=== PATIENT | male | born 1940 | race Caucasian/White ===

== ENCOUNTER 2022-10-04 04:44 | Emergency (ER) | payer OTHER, SELFPAY ==
[2022-10-04 04:47] VITALS: BP 143/98; PULSE 93; RESP 16; TEMP 37; O2SAT 100
[2022-10-04] MEDS: Tranexamic Acid 1,000 MG/10 ML VIAL 1000 MG IVP (05:20)
--- NOTE | 2022-10-04 05:36 | ED.GENADUL_ITS ---
Discharge Plan Disposition Patient Disposition: Home Condition: Improving Discharge Details Chief Complaint: DentalOral Clinical Impression: Surgical wound hemorrhage after dental procedure Primary Care Provider: Unknown,Unknown ED Provider: Davon Sutton Home Meds and New Rx's Prescriptions: No Action rivaroxaban 20 mg Tablet 20 mg PO AC memantine 5 mg Tablet 5 mg PO DAILY aspirin 81 mg Tablet,Chewable 81 mg PO DAILY Discharge Instructions Additional Instructions: Please follow-up with your primary care physician and dentist as needed. Please return to the emergency department for any worsening symptoms. Medical Decision Making 82-year-old male on rivaroxaban recent upper molar tooth extraction presents with resolving bleeding from tooth extraction site; gauze in place no active bleeding, have applied TXA impregnated gauze to site. Hemodynamically stable no acute distress. Will reassess for recurrent bleeding. Likely discharge home with close followup 6: 30 patient resting comfortably no further bleeding. Hemodynamically stable HPI General Date/Time Provider Initiated Documentation: 10/04/22 04:57 . HPI Narrative: 82-year-old male on rivaroxaban recent tooth extraction presents with bleeding from tooth extraction site after brushing his teeth last evening. Related Data Home Medications Medication Instructions Recorded Confirmed aspirin 81 mg chewable tablet 81 mg PO DAILY 10/04/22 10/04/22 memantine 5 mg tablet 5 mg PO DAILY 10/04/22 10/04/22 rivaroxaban 20 mg tablet 20 mg PO AC 10/04/22 10/04/22 Allergies Allergy/AdvReac Type Severity Reaction Status Date / Time No Known Allergies Allergy Unverified 10/04/22 04:53 General Stated Complaint: DentalOral SIERRA: 4 Review of Systems Narrative: Review of Systems Constitutional: negative Eyes: negative ENT: bleeding from tooth extraction site Cardiovascular: negative Respiratory: negative Gastrointestinal: negative : negative Musculoskeletal: negative Skin: negative Neurologic: negative Psych: negative PFSH All Active Problems (Updated 10/04/22 @ 06:27 by Davon Sutton MD) Surgical wound hemorrhage after dental procedure (Acute) Social History Smoking/Tobacco Use Status: Never Smoking risk assessment performed?: Yes Alcohol Intake: never Substance use type: does not use Do you feel safe at home: Yes Do you feel safe in your relationship?: Yes Exam Narrative Exam Narrative: Physical Examination General: alert, awake, cooperative, resting comfortably, no acute distress HEENT: left upper molar tooth extraction site with gauze in place, no active bleeding Course Vital Signs Vital signs: Vital Signs Temperature 37.0 C 10/04/22 04:47 Pulse 93 H 10/04/22 04:47 Respiratory Rate 16 10/04/22 04:47 Blood Pressure 143/98 H 10/04/22 04:47 Pulse Oximetry 100 10/04/22 04:47 Temperature 37.0 C 10/04/22 04:47 Pulse 93 H 10/04/22 04:47 Respiratory Rate 16 10/04/22 04:47 Respiratory Effort Normal 10/04/22 04:51 Blood Pressure 143/98 H 10/04/22 04:47 Pulse Oximetry 100 10/04/22 04:47 Oxygen Delivery Method Room Air 10/04/22 04:47 Oxygen Flow Rate 0 10/04/22 04:47 Pain Level 0 10/04/22 04:47
[2022-10-04 06:29] VITALS: BP 142/72; PULSE 72; RESP 16; O2SAT 99
== END 2022-10-04 06:31 | disposition home or self-care (01) ==
PROVIDERS: Emergency Provider Emergency Medicine
DX: K08.89 Other specified disorders of teeth and supporting structures (principal)
CPT/HCPCS: 96374; 99284

== ENCOUNTER 2022-10-09 08:36 | Emergency (ER) | payer OTHER, SELFPAY ==
[2022-10-09] VITALS (17 sets, daily range): BP systolic 126–133; BP diastolic 72–84; PULSE 65–92; RESP 18; TEMP 36.7; O2SAT 98–100
--- NOTE | 2022-10-09 09:11 | ED.GENADUL_ITS ---
Discharge Plan Disposition Patient Disposition: Home Discharge Details Clinical Impression: Surgical wound hemorrhage after dental procedure Primary Care Provider: Crutis Mayers ED Provider: Gardenia Holly Home Meds and New Rx's Prescriptions: Held rivaroxaban 20 mg Tablet 20 mg PO AC Hold Instructions: Resume on 10/11/22. Call your primary care provider and ask when to reinitiate rivaroxaban. aspirin 81 mg Tablet,Chewable 81 mg PO DAILY Hold Instructions: Resume on 10/11/22. Call your primary care provider and asked them when you should restart aspirin No Action losartan 25 mg Tablet 25 mg PO DAILY memantine 5 mg Tablet 5 mg PO DAILY Discharge Instructions Instructions: Postoperative Bleeding (ED) Additional Instructions: Hold rivaroxaban and aspirin until October 11. On Tuesday call your primary care provider and dentist to arrange follow-up and asked them when to reinitiate rivaroxaban and aspirin. Return to the emergency department for any new or worrisome symptoms such as dizziness, chest pain, shortness of breath or any concerns. Discharge Data Discharge Date/Time-TO BE ENTERED AT DEPARTURE: 10/09/22 12:11 Medical Decision Making Medical Records Medical records narrative: This is a 82-year-old male on Xarelto for atrial fibrillation. He presents with bleeding post dental extraction. I have discussed with the pharmacist about applying topical TXA and we are awaiting for TXA. He is complaining feeling dizzy and I will check a CBC and basic metabolic panel. We have advised the patient to hold gauze and pressure on the wound. HPI General Date/Time Provider Initiated Documentation: 10/09/22 08:51 . HPI Narrative: Time seen was 9 AM in bed 7. The patient is a 82-year-old male on Xarelto for atrial fibrillation who had a left upper tooth extraction several weeks ago and had the onset of spontaneous bleeding from the site at 2 AM this morning. The patient has difficulty assessing the quantity of blood but does state that he feels slightly woozy. He denies any chest pain or shortness of breath. He denies any syncope. He denies any pain or difficulty breathing or talking. He denies any aggravating or alleviating factors. He was seen in the emergency department on 10/04 for a similar episode and was treated with TXA impregnated on gauze. The patient is accompanied by the son who gives additional history. Related Data Home Medications Medication Instructions Recorded Confirmed aspirin 81 mg chewable tablet 81 mg PO DAILY 10/04/22 10/09/22 memantine 5 mg tablet 5 mg PO DAILY 10/04/22 10/09/22 rivaroxaban 20 mg tablet 20 mg PO AC 10/04/22 10/09/22 losartan 25 mg tablet 25 mg PO DAILY 10/09/22 10/09/22 Allergies Allergy/AdvReac Type Severity Reaction Status Date / Time No Known Allergies Allergy Unverified 10/09/22 08:43 General Stated Complaint: DentalOral SIERRA: 3 PFSH All Active Problems (Updated 10/09/22 @ 12:01 by Gardenia Holly MD) Surgical wound hemorrhage after dental procedure (Acute) Social History Smoking/Tobacco Use Status: Never Smoking risk assessment performed?: Yes Alcohol Intake: never Substance use type: does not use Housing: house Do you feel safe at home: Yes Do you feel safe in your relationship?: Yes Exam Const General: cooperative, healthy appearing, comfortable, no acute distress, well developed, well groomed, well hydrated and other (The patient has normal phonation and is handling secretions ) Nutritional Appearance: average body habitus and well nourished Orientation: alert, awake and oriented x3 Other: The patient does have blood around his lips. And does appear slightly hard of hearing HENMT Head: normal to inspection, normocephalic and atraumatic Ears: external ears normal and other (Slight decrease in hearing) General nose exam: external nose normal and no nasal discharge Face and sinus: normal facial exam Mouth: moist mucous membranes and other (The patient has had a dental extraction of the left upper premolar. ) Teeth and gingiva: other (There is blood oozing from the wound) Eyes General: appearance normal, both eyes and all related structures Pupils: PERRL EOM: EOM intact bilaterally Neck Neck: normal visual inspection and full ROM Chest Chest: normal inspection of the chest Resp Effort & Inspection: normal respiratory effort and able to speak in complete sentences Auscultation: clear to auscultation bilaterally and abnormal I/E ratio Cardio Rate: regular rate Rhythm: abnormal rhythm irregularly irregular Heart Sounds: S1 normal and S2 normal GI Inspection: normal to inspection and non-distended Palpation: soft and nontender Back/Spine/Pelvis Back: no CVA tenderness Cervical Spine: normal cervical lordosis Thoracic/Lumbar Spine: thoracic and lumbar spine normal to inspection Skin General skin exam: no rashes or lesions noted, turgor normal, no petechiae and no purpura Rashes: no rashes Trauma: no lacerations or abrasions Neuro General: patient alert, patient awake, patient oriented x3, no meningeal signs, no focal motor deficits and CN's II-XI intact bilaterally Cranial Nerves: CN's II-XI intact bilaterally Cognition: normal cognition Speech: speech normal Gait: normal gait Motor: muscle tone normal throughout Sensory Exam: no sensory deficits noted Extrem General: normal to inspection, full ROM, capillary refill normal and normal exam except as noted Psych Appearance: grossly normal Affect: normal affect Attitude: cooperative Insight: insight good Judgment: judgment good Other: The patient appears to have capacity make medical decisions. Course I have spoken with the pharmacist about obtaining topical TXA. Reevaluation(s) Time: 09:30 Reevaluation #2: The patient has been seen by the mental health screener. We are awaiting placement. Time: 11:59 Additional Reevaluation(s): The patient has not had any further bleeding after application of TXA. Vital Signs Vital signs: Vital Signs Temperature 36.7 C 10/09/22 08:39 Pulse 92 H 10/09/22 08:39 Respiratory Rate 18 10/09/22 08:39 Blood Pressure 133/79 10/09/22 08:39 Pulse Oximetry 99 10/09/22 08:39 Temperature 36.7 C 10/09/22 08:39 Temperature Source Temporal Artery Scan 10/09/22 08:39 Pulse 92 H 10/09/22 08:39 Respiratory Rate 18 10/09/22 08:39 Respiratory Effort Normal, Non-Labored 10/09/22 08:47 Blood Pressure 133/79 10/09/22 08:39 Blood Pressure Position Sitting 10/09/22 08:39 Pulse Oximetry 99 10/09/22 08:39 Oxygen Delivery Method Room Air 10/09/22 08:39 Oxygen Flow Rate 0 10/09/22 08:39
[2022-10-09 09:34] LABS: Abs Immature Grans 0.03 10^3/uL (0.0-0.06); Absolute Basophil Count 0.05 10^3/uL (0.0-0.2); Absolute Eosinophil Count 0.05 10^3/uL (0.0-0.7); Absolute Lymphocyte Count 1.33 10^3/uL (1.2-3.4); Absolute Monocyte Count 0.36 10^3/uL (0.1-0.8); Absolute Neutrophil Count 5.42 10^3/uL (1.2-6.7); Basophils % 0.7; Eosinophils % 0.7; HCT 42.6 % (40.0-50.0); HGB 14.7 g/dL (13.5-17.5); Immature Grans % 0.4; Lymphocytes % 18.4; MCH 30.6 pg (27.0-33.0); MCHC 34.5 % (32.0-36.0); MCV 89 fL (80-95); MPV 10.4 fL (8.0-11.0); Neutrophils % 74.8; Platelet Count 333 10^3/uL (130-400); RBC 4.81 10^6/uL (4.36-5.78); RDW 13.7 % (11.8-14.1); RDW-SD 44.7 fL; WBC 7.24 10^3/uL (4.4-10.8)
[2022-10-09 09:45] LABS: Anion Gap 9.4 mmol/L (3-11); BUN 19 mg/dL (7-18); CO2 25.6 mmol/L (21.0-32.0); CREATININE 1.1 mg/dL (0.70-1.30); Chloride 106 mmol/L (98-107); Estimated GFR 67.86 (mL/min/1.73m2); Glucose 125 mg/dL (74-106); Potassium 4.1 mmol/L (3.5-5.1); Sodium 141 mmol/L (136-145)
[2022-10-09] MEDS: Tranexamic Acid 1,000 MG/10 ML VIAL 1000 MG NS (10:26)
--- NOTE | 2022-10-09 10:27 | NUR.NOTE ---
Nursing Note: TXA medication in pill form did not dissolve appropriately for use. Medication form changed to oral and applied to area of bleeding. Pt thanked this RN for care and thorough update.
--- NOTE | 2022-10-09 11:19 | NUR.NOTE ---
Nursing Note: Pt thoroughly updated with plan of care. Bleeding controlled for 20min. Provider team updated.
--- NOTE | 2022-10-09 12:24 | NUR.NOTE ---
Nursing Note: Pt's d/c instruction pack delayed due to missing provider team completion. Pt in no signs of distress and bleeding controlled. Pt thanked this RN for care and professionalism.
== END 2022-10-09 12:25 | disposition home or self-care (01) ==
PROVIDERS: Emergency Provider Emergency Medicine Emergency Medical Services; PCP Internal Medicine
DX: K91.840 Postprocedural hemorrhage of a digestive system organ or structure following a digestive system procedure (principal); I48.91 Unspecified atrial fibrillation; R42 Dizziness and giddiness; Z98.818 Other dental procedure status; Z79.01 Long term (current) use of anticoagulants; Z79.82 Long term (current) use of aspirin
CPT/HCPCS: 36415; 80048; 99282; 85025